=== PATIENT | male | born 1980 | race Caucasian/White ===

== ENCOUNTER 2019-01-14 14:48 | Emergency (ER) | payer OTHER, SELFPAY ==
[2019-01-14 14:49] VITALS: BP 164/103; PULSE 100; RESP 20; TEMP 36.6; O2SAT 97; BMI 29.4
--- NOTE | 2019-01-14 15:28 | RAD_ITS ---
STUDY: X-RAY - LEFT KNEE REASON FOR EXAM: Male, 38 years old. Left knee pain and swelling. TECHNIQUE: 4 view(s) of the knee. COMPARISON: None. FINDINGS: Normal visualized distal femur. Normal visualized proximal tibia and fibula. Normal proximal tibiofibular articulation. Normal medial femorotibial compartment. Mild degree of calcification of the medial meniscus. Normal lateral femorotibial compartment. Normal patellofemoral articulation. Large joint effusion. RAD/Knee 4 or More Views IMPRESSION: Large joint effusion. Mild chondrocalcinosis of the medial meniscus. Electronically Signed: Chris Christina, at 15:58 EDT , Service support ,
--- NOTE | 2019-01-14 15:29 | ED.DCSUM_ITS ---
- ER Visit Summary Date of Service: 01/14/19 Chief Complaint: Left knee pain History of Present Illness: The patient is a 38 M who presents with left knee pain that began last night. Patient states his knee gave out. Patient does not remember what he was doing when his knee gave out. Patient states that the swelling and pain became worse today. Patient states he is able to bear weight. Patient states the pain is worse with movement and better with rest. Patient describes the pain is sharp. Patient denies any paresthesias or weakness. Patient denies any other injuries. Physical Examination: Vital signs are stable. Patient is afebrile. Patient is in no acute distress. Musculoskeletal exam reveals tenderness over the left knee. There is a moderate effusion. There is no erythema or warmth. There is no pain with short arc range of motion. Patient was guarding on examination. There is no laxity with varus and valgus stress testing or Vandana's test. There is no calf tenderness. Sensation was intact to light touch in the lower extremities. Pedal pulses are equal bilaterally. Test Results: X-rays of the left knee were obtained. There is a large effusion. There is no acute fracture. These were interpreted by the radiologist and rev iewed by myself. Emergency Department Course and Treatment: Patient was given a knee immobilizer here. Patient was given crutches. Patient was instructed to ice and elevate the left knee. Patient was given a prescription for Naprosyn for pain. Patient was instructed to follow-up with his primary care physician in 5 to 7 days. Patient requested referral to a primary care physician who takes [email or web address] insurance. Patient was referred to Dr. Milo Luna who was next on the list for unassigned patients. According to the [employer] website, he does take [employer] insurance. Patient understood and was agreeable with the plan. All questions were answered. Disposition: Discharge home Impression: Left knee sprain This note was generated with [employer] dictation software. It may contain incorrect words, spelling, and punctuation that were not noted in review of the chart prior to signing ED Disposition - Plan for ED Patient: Disposition: Home or Assisted Living Diagnosis: Left knee sprain Instructions: Knee Sprain Prescriptions: Naproxen [Naprosyn] 500 mg PO BID PRN #20 tab Prescription Printed Referrals: NOT,DEFINED [NON-STAFF] - Milo Luna MD [STAFF PHYSICIAN] - 3-5 Days
--- NOTE | 2019-01-14 17:27 | ED.RN ---
DISCHARGE INSTRUCTIONS GIVEN TO AND REVIEWED WITH PATIENT, PATIENT DENIES QUESTIONS OR CONCERNS AND VOICES UNDERSTANDING OF DISCHARGE INSTRUCTIONS. PT AMBULATES OUT OF ROOM WITHOUT DIFFICULTY.
== END 2019-01-14 17:28 | disposition home or self-care (01) ==
PROVIDERS: Emergency Provider Emergency Medicine
DX: S83.92XA Sprain of unspecified site of left knee, initial encounter (principal); X58.XXXA Exposure to other specified factors, initial encounter; Y93.9 Activity, unspecified; Y92.89 Other specified places as the place of occurrence of the external cause; Y99.9 Unspecified external cause status; M25.462 Effusion, left knee; F17.210 Nicotine dependence, cigarettes, uncomplicated
CPT/HCPCS: 73564; 99284

== ENCOUNTER 2019-12-01 23:30 | Emergency (ER) | payer OTHER, SELFPAY ==
[2019-12-01 23:32] VITALS: BP 161/90; PULSE 99; RESP 16; TEMP 36.6; O2SAT 97; BMI 32.8
--- NOTE | 2019-12-02 00:04 | RAD_ITS ---
STUDY: X-RAY - LEFT WRIST REASON FOR EXAM: Male, 39 years old. laceration to distal medial lt wrist -- ? glass fb TECHNIQUE: 3 view(s) of the wrist were obtained. COMPARISON: None. FINDINGS: Normal visualized distal radius and ulna. Normal radiocarpal articulation. Normal distal radioulnar articulation. Normal carpal bones. Normal carpal articulations. Normal carpometacarpal articulation of the thumb. Normal second through fifth carpometacarpal articulations. Normal visualized metacarpal bones. There is focal soft tissue laceration adjacent to the distal ulna. There is a 5 mm embedded foreign body. RAD/Wrist min 3 Views IMPRESSION: There is NO fracture or dislocation. There is focal soft tissue laceration adjacent to the distal ulna. There is a 5 mm embedded foreign body. Electronically Signed: Otoniel Gould MD at 1:12 EDT , Service support ,
[2019-12-02 03:56] VITALS: BP 154/76; PULSE 86; RESP 18; O2SAT 97
--- NOTE | 2019-12-02 04:39 | ED.VIS.UPPEX ---
History of Present Illness Chief Complaint: Laceration Informant: Patient Mechanism/Context: Injury - JPTA Context: Sudden Onset Timing: Continuous Quality of Pain: - - sore Location: left wrist Current Severity: Mild Maximum Severity: Mild Worsened by: palpation Relieved by: leaving alone Associated Symptoms: Negative for: Parasthesia, Weakness, Loss of Funtion Narrative: [id number]-[id number] male accidentally put his left hand through a pane of glass on a door as he went to knock on it. He sustained a laceration. Last tetanus was a year ago. He denies any numbness or loss of function. Tetanus Immunization: <5 years Past Medical History - Allergies and Home Meds Allergies/Adverse Reactions: Allergies No Known Allergies Allergy (Verified 12/01/19 23:31) Smoking Status: Former smoker Review of Systems General: Denies: Chills, Fever, Sweats Musculoskeletal: Reports: Extremity Pain. Denies: Neck pain, Back pain Skin: Reports: Wounds. Denies: Abscess Neurological: Denies: Headache, Weakness, Numbness Physical Exam Vital Signs/Narrative: Vital Signs Pulse Resp BP Pulse Ox 12/02/19 03:56 86 18 154/76 H 97 General: Well nourished, Well developed, - - NAD Head: Normocephalic, Atraumatic ENT: No Trauma, Moist Mucous Membranes Extremeties: Full range of motion throughout all 4 extremities including the left wrist where there is a wound. Full range of motion throughout all of the fingers including flexion at FDS and FDP all digits. No bony tenderness throughout the wrist or hand. Skin: Normal color, No rash, Trauma - Stellate 6 cm laceration left wrist ulnar aspect with flaps. Clean appearing, no gross contamination visible. Minimal oozing of blood. The FCR is visible and appears to be uninjured within the laceration, no other structures other than subcutaneous fat visible. Neurological: Alert, Oriented x3, Cranial nerves II-XII grossly intact, Normal Strength, Normal Sensation, Normal Gait Psychological: Normal affect, Normal Mood Diagnostic/Tx/Re-eval Clinical Impression(s) from Imaging Studies Wrist X-Ray 12/02/19 00:04 IMPRESSION: There is NO fracture or dislocation. There is focal soft tissue laceration adjacent to the distal ulna. There is a 5 mm embedded foreign body. Electronically Signed: Otoniel Gould MD at 1:12 EDT , Service support , - Medical Decision Making X-ray showed a foreign body. It was measured at 5 mm, there are 2 very small little radiopaque flecks on it. After anesthetizing the patient with lidocaine with epinephrine to attempt a relatively bloodless field, I searched with increased overhead lighting and 2 different tools for this foreign body and wound unable to visualize it or feel it. I irrigated the wound and attempts to wash it out, the patient does not have foreign body sensation before or after anesthetizing it. We closed the wound after discussion with the patient, if these are very small little flecks of glass and they are retained, I think that the risk is low of permanent problems. There is definitely no 5 mm shard of glass in the wound. I probed all of the areas that I could. Every area had an endpoint. I placed him on prophylactic antibiotics, his tetanus is up-to-date, the wound was closed, and all questions answered at the bedside after dressing it with bacitracin. Procedures - Lacerations left wrist Length: 6 cm Depth: Sub Q Shape: Stellate Prep: Sterile Conditions, Chlorhexadine Laceration repair: Irrigated, Lidocaine with epi - 5cc, 1%, Local, Skin sutures Irrigated (ml): 100 Number of Sutures/[place]: 8 Suture Information: Ethilon, Simple, 4-0 ED Disposition - Plan for ED Patient: Disposition: Home or Assisted Living Diagnosis: Laceration of left wrist with foreign body Instructions: ED Foreign Body Soft Tissue, ED Laceration Hand Prescriptions: Cephalexin [Keflex] 500 mg PO TID #15 cap Transmission Status: Pending to [facility]30 Referrals: Ulices Duvall MD [STAFF PHYSICIAN] - 10 Day for suture removal (and for evaluation of possible retained foreign body management)
[2019-12-02] MEDS: Cephalexin 250 MG Capsule 500 MG PO (04:53)
[2019-12-02 04:56] VITALS: BP 128/78; PULSE 80; RESP 16; O2SAT 98
== END 2019-12-02 04:57 | disposition home or self-care (01) ==
PROVIDERS: Emergency Provider Emergency Medicine
DX: S61.512A Laceration without foreign body of left wrist, initial encounter (principal); W25.XXXA Contact with sharp glass, initial encounter; Y93.9 Activity, unspecified; Y92.89 Other specified places as the place of occurrence of the external cause; Y99.9 Unspecified external cause status; Z87.891 Personal history of nicotine dependence; Z23 Encounter for immunization
CPT/HCPCS: 12002; 73110; 99283

== ENCOUNTER 2023-04-07 23:10 | Emergency (ER) | payer SELFPAY ==
[2023-04-07 23:11] VITALS: BP 142/77; PULSE 61; RESP 18; TEMP 36.7; O2SAT 99; BMI 21.6
--- NOTE | 2023-04-07 23:20 | RAD_ITS ---
EXAM: XR RIGHT FINGERS, 2 OR MORE VIEWS CLINICAL INDICATION: Injury/Pain TECHNIQUE: Frontal, lateral and oblique views of the fingers of the right hand. COMPARISON: No relevant prior studies available. FINDINGS: BONES/JOINTS: Volar dislocated third proximal interphalangeal joint with associated fracture fragment adjacent to the dorsal base of the middle phalanx which is likely the donor site. No sclerotic or destructive changes observed. SOFT TISSUES: Soft tissue swelling of the third digit. No radiopaque foreign body. RAD/Finger(s) Min 2 Views IMPRESSION: Volar dislocated third proximal interphalangeal joint with associated fracture fragment adjacent to the dorsal base of the middle phalanx which is likely the donor site. Electronically Signed: Amrik Silveira DO at 23:37 EDT ,
--- NOTE | 2023-04-07 23:36 | EDS_ITS ---
HPI History of Present Illness Chief Complaint: Upper Extremity Injury PFSH PFS Medical History no medical history Home Medications NK 04/07/23 [History Last Taken Unknown] Allergy/AdvReac Type Severity Reaction Status Date / Time No Known Allergies Allergy Verified 04/07/23 23:14 Social History Smoking Status: Current every day smoker tobacco type: cigarettes EXAM Physical Exam Const Vital Signs: 04/07/23 23:11 Temperature 98.0 F Temperature Source Temporal Pulse Rate 61 Respiratory Rate 18 Blood Pressure 142/77 H Blood Pressure Mean 98 Pulse Ox 99 Oxygen Delivery Method Room Air MDM MDM Radiography Chest X-Ray - ED: Read by ED Physician (X-ray of the right long finger was obtained. There is a volar dislocation at the PIP joint. There is a small avulsion fracture noted. Suspect this is off the proximal portion of the middle phalanx.) Procedures Other Procedures Procedure(s): The right ring finger was anesthetized by digital block. Reduction of the dislocation was undertaken. Of note there is a small fluid collection on the volar surface of the PIP joint. Since the patient is now anesthetized we will evaluate more closely determine if this is open or not. Discharge Plan Triage Chief Complaint: Upper Extremity Injury ED Provider: Tex Sheriff Dx/Rx/DC Orders Prescriptions: No Action NK Primary Care Provider: Care Physician,No Primary Referrals: Care Physician,No Primary [Primary Care Provider] -
--- NOTE | 2023-04-07 23:36 | EX.ED.UPPERE ---
HPI History of Present Illness Chief Complaint: Upper Extremity Injury Detail of Chief Complaint: Fell injuring his right long finger. Informant: patient and spouse/S.O. Occured/Mechanism Mechanism/Context: Yes blunt trauma and Yes same level fall Onset/Context/Timing Onset: Hours Context: Sudden Onset Timing: Continuous Quality of Pain: Dull and Aching Location: Right long finger with hematoma on volar surface. Current Severity: Mild Maximum Severity: Moderate Worsened by: Movement Relieved by: Nothing Associated Symptoms Associated Symptoms: Positive for Parasthesia; Negative for Weakness or Loss of Funtion Narrative Narrative: Is a 42-year-old usyoj-ohce-enhurcpq male presents after fall. He injured his right long finger. He has an injury at the PIP joint. He complains of numbness distal to the injury. He denies prior injury. He has no allergies. Is on no medication. He does admit to smoking and drinking. He did drink this evening at [employer]. Tetanus Immunization: Unknown Prior similar symptoms: No Recent Illness/Hospitalization: No PFSH PFSH Medical History no medical history no medical history Home Medications NK 04/07/23 [History Last Taken Unknown] Allergy/AdvReac Type Severity Reaction Status Date / Time No Known Allergies Allergy Verified 04/07/23 23:14 Surgical History no surgical history no surgical history Social History (Updated 04/07/23 @ 23:[address] 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) household members: spouse and children Smoking Status: Current every day smoker tobacco type: cigarettes alcohol intake: current ROS ROS ED Musculoskeletal Musculoskeletal: Reports other Details: The right long finger ; Denies back pain, myalgias or neck pain Integumentary Denies abscess, Abrasions or rash Neurologic Neurologic: Reports paresthesias; Denies headache(s) or weakness Hematologic/Lymphatic Hematologic/Lymphatic: Denies easy bleeding or easy bruising EXAM Physical Exam Const Vital Signs: 04/07/23 23:11 Temperature 98.0 F Temperature Source Temporal Pulse Rate 61 Respiratory Rate 18 Blood Pressure 142/77 H Blood Pressure Mean 98 Pulse Ox 99 Oxygen Delivery Method Room Air Positive well nourished and well developed General Appearance ED: well developed and NAD; Negative for cyanotic or diaphoretic HEENT Reports moist mucous membranes normocephalic and atraumatic Eyes PERRL and EOMs intact bilaterally Eyes Narrative: No hemorrhage noted. There is no septal deviation hematoma. Neck full ROM and supple Resp normal respiratory effort and clear to auscultation bilaterally Cardio regular rate, regular rhythm, S1 normal heart sound, S2 normal heart sound and no murmurs Extremity Extremity Narrative: 3 at the PIP joint of the right long finger. Two-point discrimination is normal. There is no subungual hematoma noted. The extensor inside, extensor commonness and extensor minimize tendon are intact. The flexor digitorum superficialis and flexor digitorum profundus are intact for the index, ring and little finger. Patient is able to flex at the DIP joint long finger unable at the PIP joint. There is also a small hematoma noted volar surface of the PIP joint. There is no break in the skin. Neuro oriented x3, CN's II-XII intact bilaterally, no focal motor deficits and no sensory deficits noted Sensorium / Orientation: alert Psych mental status grossly normal Skin Skin Narrative: Under the EXTR medial portion of the chart MDM MDM MDM Narrative Medical decision making narrative: Obtained to evaluate for dislocation versus fracture dislocation versus fracture. Radiography Chest X-Ray - ED: Read by ED Physician (X-ray of the right long finger was obtained. There is a volar dislocation at the PIP joint. There is a small avulsion fracture noted. Suspect this is off the proximal portion of the middle phalanx.) and - (Of the finger were obtained postreduction. There is a small avulsion fracture noted on the volar surface. This raises concern for volar plate injury. We will have patient placed in an aluminum splint position of function and he was referred to Dr. Ang talbot.) Procedures Other Procedures Procedure(s): The right ring finger was anesthetized by digital block. Reduction of the dislocation was undertaken. Of note there is a small fluid collection on the volar surface of the PIP joint. Since the patient is now anesthetized we will evaluate more closely determine if this is open or not. The joint was reduced easily with traction. Postreduction film was ordered. Discharge Plan Triage Chief Complaint: Upper Extremity Injury ED Provider: Tex Sheriff Dx/Rx/DC Orders Clinical Impression: Closed fracture dislocation of proximal interphalangeal (PIP) joint of finger Instructions: ED Finger Dislocation, ED Fracture, Finger, Closed Prescriptions: No Action NK Primary Care Provider: Care Physician,No Primary Referrals: Johnny Plummer DO [Med Staff - Active Staff] - 3-5 Days Care Physician,No Primary [Primary Care Provider] - Activity Restrictions/Additional Instructions: 1. Apply ice to your right long finger 6-10 times a day 2. Wear splint until seen and cleared by Dr. Johnny Plummer 3. Noncompliance may result in permanent deformity of your finger and disability Disposition Disposition: Home, Self Care
--- NOTE | 2023-04-07 23:39 | RAD_ITS ---
EXAM: XR RIGHT FINGERS, 2 OR MORE VIEWS CLINICAL INDICATION: Injury/Pain -- Reduction of PIP dislocation TECHNIQUE: Frontal, lateral and oblique views of the right third finger. COMPARISON: Finger exam from same date FINDINGS: BONES/JOINTS: Reduction of the previous PIP joint dislocation. Small fracture fragment from the volar base of the middle phalanx is again noted. No sclerotic or destructive changes observed. SOFT TISSUES: Soft tissue swelling of the third finger. No radiopaque foreign body. RAD/Finger(s) Min 2 Views IMPRESSION: Reduction of the previous PIP joint dislocation. Small fracture fragment from the volar base of the middle phalanx is again noted. Electronically Signed: Segundo Rush MD at 0:48 EDT ,
== END 2023-04-08 00:46 | disposition home or self-care (01) ==
PROVIDERS: Emergency Provider Emergency Medicine; Visit Provider Emergency Medicine
DX: S62.614A Displaced fracture of proximal phalanx of right ring finger, initial encounter for closed fracture (principal); F17.210 Nicotine dependence, cigarettes, uncomplicated; W18.30XA Fall on same level, unspecified, initial encounter
CPT/HCPCS: 26770; 73140; 99283

== ENCOUNTER 2024-12-10 21:49 | Emergency (ER) | payer SELFPAY ==
[2024-12-10 21:50] VITALS: BP 135/88; PULSE 87; RESP 17; TEMP 36.6; O2SAT 93; BMI 27.1
--- NOTE | 2024-12-10 22:35 | RAD_ITS ---
PROCEDURE: KNEE 3 VIEWS 12/10/2024 REASON FOR EXAM: PAIN /JOINT EFFUSION TECHNIQUE: 3 view(s) of the right knee COMPARISON: None FINDINGS: No acute fracture or traumatic malalignment. Joint spaces are predominantly maintained. Moderate knee joint effusion. There is a punctate calcification in the thigh soft tissues, which may be vascular. Soft tissues are otherwise unremarkable. Tiny bone islands in the femoral condyles. RAD/Knee 3 Views IMPRESSION: Moderate knee joint effusion, without an acute osseous abnormality. Reading Location: [facility]
--- OUTSIDE RECORDS SUMMARY | 2024-12-10 23:07 | XMS RPT_ITS | CCD ---
Author Organization [facility] Care Team Providers Care Director Investor Relations Name Role Phone Tex Sheriff Attending [facility] Care Physician, No Primary Primary Care Unava ilable Medications Current Medications Medication Drug Class(es) Dates Sig (Normalized) Sig (Original) [place] (Nk) (1 source) Start: 04-07-2023 [place] (Nk) A ctive April 07, 2023 12:00am Completed/Discontinued Medications Medication Drug Class(es) Dates Sig (Normalized) Sig (Original) cephalexin 500 mg oral capsule (1 source) Cephalosporin Antibacterial Start: 12-02-2019 End: 04-07-2023 take 500 mg by mouth three times daily Cephalexin Discontinued 500 MG PO THREE TIMES A DAY December 02, 2019 12:00am April 07, 2023 11:14pm Problems Problem Classification Problem Date Documented Date Episodic/Chronic Fracture of upper limb (1 source) Closed fracture dislocation of proximal interphalangeal joint of digit of hand; Translations: [Fracture of unspecified phalanx of unspecified finger, initial encounter for closed fracture] 04-08-2023 Episodic Open wounds of extremities (1 source) Laceration of wrist with foreign body; Translations: [Laceration with foreign body of left wrist, initial encounter] 12-03-2019 Episodic Other injuries and conditions due to external causes (1 source) Unspecified injury of right wrist, hand and finger(s), initial encounter; Translations: [Unspecified injury of right wrist, hand and finger(s), initial encounter] Onset: 04-13-2023 Episodic Sprains and strains (1 source) Sprain of knee; Translations: [Sprain of unspecified site of left knee, initial encounter] 01-15-2019 Episodic Results Test Name Value Interpretation Reference Range Facil ity Emergency Department Summary on 04-08-2023 Emergency Department Summary [facility] Medical Records Department [address] [place] [address] Emergency Department Summary 04/07/23 MR#: [id number] Acct: [id number] Name: SEUN BARNES Jr. Rep #: [id number] : 1980 42 From: 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 PCP: Care Physician,No Primary Status:REG ER Location: ED HPI History of Present Illness Chief Complaint: Upper Extremity Injury Detail of Chief Complaint: Fell injuring his right long finger. Informant: patient and spouse/S.O. Occured/Mechanism Mechanism/Context: Yes blunt trauma and Yes same level fall Onset/Context/Timing Onset: Hours Context: Sudden Onset Timing: Continuous Quality of Pain: Dull and Aching Location: Right long finger with hematoma on volar surface. Current Severity: Mild Maximum Severity: Moderate Worsened by: Movement Relieved by: Nothing Associated Symptoms Associated Symptoms: Positive for Parasthesia; Negative for Weakness or Loss of Funtion Narrative Narrative: Is a 42-year-old adheo-obme-guorgrjd male presents after fall. He injured his right long finger. He has an injury at the PIP joint. He complains of numbness distal to the injury. He denies prior injury. He has no allergies. Is on no medication. He does admit to smoking and drinking. He did drink this evening at [facility]. Tetanus Immunization: Unknown Prior similar symptoms: No Recent Illness/Hospitalizatio n: No PFSH PFSH Medical History no medical history no medical history Home Medications NK 04/07/23 [History Last Taken Unknown] Allergy/AdvReac Type Severity Reaction Status Date / Time No Known Allergies Allergy Verified 04/07/23 23:14 Surgical History no surgical history no surgical history Social History (Updated 04/07/23 @ 23:[address] 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) household members: spouse and children Smoking Status: Current every day smoker tobacco type: cigarettes alcohol intake: current ROS ROS ED Musculoskeletal Musculoskeletal: Reports other Details: The right long finger ; Denies back pain, myalgias or neck pain Integumentary Denies abscess, Abrasions or rash Neurologic Neurologic: Reports paresthesias; Denies headache(s) or weakness Hematologic/Lymphatic Hematologic/Lymphatic: Denies easy bleeding or easy bruising EXAM Physical Exam Const Vital Signs: 04/07/23 23:11 Temperature 98.0 F Temperature Source Temporal Pulse Rate 61 Respiratory Rate 18 Blood Pressure 142/77 H Blood Pressure Mean 98 Pulse Ox 99 Oxygen Delivery Method Room Air Positive well nourished and well developed General Appearance ED: well developed and NAD; Negative for cyanotic or diaphoretic HEENT Reports moist mucous membranes normocephalic and atraumatic Eyes PERRL and EOMs intact bilaterally Eyes Narrative: No hemorrhage noted. There is no septal deviation hematoma. Neck full ROM and supple Resp normal respiratory effort and clear to auscultation bilaterally Cardio regular rate, regular rhythm, S1 normal heart sound, S2 normal heart sound and no murmurs Extremity Extremity Narrative: 3 at the PIP joint of the right long finger. Two-point discrimination is normal. There is no subungual hematoma noted. The extensor inside, extensor commonness and extensor minimize tendon are intact. The flexor digitorum superficialis and flexor digitorum profundus are intact for the index, ring and little finger. Patient is able to flex at the DIP joint long finger unable at the PIP joint. There is also a small hematoma noted volar surface of the PIP joint. There is no break in the skin. Neuro oriented x3, CN's II-XII intact bilaterally, no focal motor deficits and no sensory deficits noted Sensorium / Orientation: alert Psych mental status grossly normal Skin Skin Narrative: Under the EXTR medial portion of the chart MDM MDM MDM Narrative Medical decision making narrative: Obtained to evaluate for dislocation versus fracture dislocation versus fracture. Radiography Chest X-Ray - ED: Read by ED Physician (X-ray of the right long finger was obtained. There is a volar dislocation at the PIP joint. There is a small avulsion fracture noted. Suspect this is off the proximal portion of the middle phalanx.) and - (Of the finger were obtained postreduction. There is a small avulsion fracture noted on the volar surface. This raises concern for volar plate injury. We will have patient placed in an aluminum splint position of function and he was referred to Dr. Ang talbot.) Procedures Other Procedures Procedure(s): The right ring finger was anesthetized by digital block. Reduction of the dislocation was undertaken. Of note there is a small fluid collection on the volar surface of the PIP joint. Since the patient is now anesthetized we will evaluate more closely determine if this is open or not (more content not included)... Normal [facility] Finger(s) Min 2 Viewson 10-0 Finger(s) Min 2 Views [facility] Imaging Services [address] [place] [address] Finger(s) Min 2 Views MR#: [id number] Acct: [id number] Name: SEUN BARNES Jr. Rep #: [id number] : 1980 M 42 From: Segundo Rush MD PCP: Care Physician,No Primary Status: DEP ER Study: Finger(s) Min 2 Views Date of Exam: 04/07/23 Exam# [id number] Ordering Dr: 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 [id number] EXAM: XR RIGHT FINGERS, 2 OR MORE VIEWS CLINICAL INDICATION: Injury/Pain -- Reduction of PIP dislocation TECHNIQUE: Frontal, lateral and oblique views of the right third finger. COMPARISON: Finger exam from same date FINDINGS: BONES/JOINTS: Reduction of the previous PIP joint dislocation. Small fracture fragment from the volar base of the middle phalanx is again noted. No sclerotic or destructive changes observed. SOFT TISSUES: Soft tissue swelling of the third finger. No radiopaque foreign body. RAD/Finger(s) Min 2 Views IMPRESSION: Reduction of the previous PIP joint dislocation. Small fracture fragment from the volar base of the middle phalanx is again noted. Electronically Signed: Segundo Rush MD at 0:48 EDT , CC: Dr. 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; No Primary Care Physician Neurourologist: Signed Normal [facility] Finger(s) Min 2 Views [facility] Imaging Services [address] [place] [address] Finger(s) Min 2 Views MR#: [id number] Acct: [id number] Name: SEUN BARNES Rep #: [id number] : 1980 M 42 From: Amrik chávez DO PCP: Care Physician,No Primary Status: REG ER Study: Finger(s) Min 2 Views Date of Exam: 04/07/23 Exam# [id number] Ordering Dr: 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 [id number] EXAM: XR RIGHT FINGERS, 2 OR MORE VIEWS CLINICAL INDICATION: Injury/Pain TECHNIQUE: Frontal, lateral and oblique views of the fingers of the right hand. COMPARISON: No relevant prior studies available. FINDINGS: BONES/JOINTS: Volar dislocated third proximal interphalangeal joint with associated fracture fragment adjacent to the dorsal base of the middle phalanx which is likely the donor site. No sclerotic or destructive changes observed. SOFT TISSUES: Soft tissue swelling of the third digit. No radiopaque foreign body. RAD/Finger(s) Min 2 Views IMPRESSION: Volar dislocated third proximal interphalangeal joint with associated fracture fragment adjacent to the dorsal base of the middle phalanx which is likely the donor site. Electronically Signed: Amrik Silveira DO at 23:37 EDT , CC: Dr. 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; No Primary Care Physician [facility]urourologist: [facility] Office Visit (UCWSTR ) SEUN BARNES JR ([id number]) 1980 M Date Time Provider Department 08/18/20 7:30 PM ROSE SPENCER [facility] During your visit today, we recorded the following information about you: Temperature Pulse Respiration Blood pressure 98.6 degrees 86/minute 16/minute 134/84 Weight 116.1 kg Rose Spencer MD 08/18/2020 8:58 PM Signed Patient presents with: Eye Problem: right eye possible plaster in it x 1 hour HPI: Patient was working with a light tonight. He was wearing safety glasses but plaster fell off his eyebrow into his right eye. He flushed the right eye with a lot of warm water. He has had no vision changes. There is no eye discomfort however the lower portion of his right eye is filled with fluid. He felt the plaster pull in the lower part of the eye and did rub the eye. MEDICATIONS: No prescriptions on file. ALLERGIES: ALLERGIES No Known Allergies VITALS: BP 134/84 Pulse 86 Temp 37 ?C (98.6 ?F) (Tympanic) Resp 16 Wt 116.1 kg (256 lb) SpO2 96% PE: Pleasant, in no acute distress. EYES: EOMI, PERRL Right: There is clear to slightly xiomara bullous fluid collection below the sclera in the lower 1/2 of the eye. No foreign body identified. The anterior chamber is clear. No corneal or scleral abrasions or fluid leaks identified with fluorescein exam. He has 2mm white sessile lesion on the inner surface of the medial upper eyelid (patient reports it is a chronic known lesion). Normal acuity to fine print. ASSESSMENT/PLAN: 1. Chemosis of conjunctiva, right - ICD9: 372.73, ICD10: H11.421 Vision is intact, no retained foreign bodies identified, no corneal defects, low suspicion for globe penetration. Repeat flushing to ensure neutral pH in the eye. He declines to schedule f/u tomorrow, but agrees to be seen by ophthalmology if there is not significant improvement. Rose Spencer MD Referring Provider: SELF [200] Allergies As of Date: 08/18/2020 (No Known Allergies) Date Reviewed: 08/18/2020 Reviewed by: Gwen Ignacio Ma - Fully Assessed Reason for Visit: Eye Problem [43] Cmt: right eye possible plaster in it x 1 hour Primary Visit Diagnosis:Chemosis of conjunctiva, right [H11.421] Problem List As Of Date: 08/18/2020 (None) Medications Discontinued During This Encounter Prescriptions - mupirocin (BACTROBAN) 2 % ointment (Discontinued) Reported on 08/18/2020 Encounter Status:Closed by ROSE SPENCER MD on 08/18/20 Normal [facility] Vital Signs Date Time Vital Sign Value Performing Clinician García chavez 04-07-2023 23:11-0400 Body height 182.88 cm [facility] 04-07-2023 23:11-0400 Body mass index (BMI) [Ratio] 21.6 kg/m2 [facility] 04-07-2023 23:11-0400 Body temperature 98 [degF] [facility] 04-07-2023 23:11-0400 Body weight 72.4 kg [facility] 04-07-2023 23:11-0400 Diastolic blood pressure 77 mm[Hg] [facility] 04-07-2023 23:11-0400 Heart rate 61 /min [facility] 04-07-2023 23:11-0400 Respiratory rate 18 /min [facility] 04-07-2023 23:11-0400 SaO2% (BldA) [Mass fraction] 99 % [facility] 04-07-2023 23:11-0400 Systolic blood pressure 142 mm[Hg] [facility] Encounters Encounter Date Encounter Type Care Provider Facility Start: 04-08-2023 End: 04-08-2023 Emergency department patient visit [facility] Facility:[facility] Start: 04-07-2023 End: 04-08-2023 Emergency department patient visit [facility]-Emergency Department Work Phone: Procedures Date Procedure Procedure Detail Performing Clinician Start: 04-07-2023 End: 04-07-2023 Diagnostic radiography of finger Plan of Treatment Date Care Activity Detail Author Patient Education ED Finger Disl ocation ED Fracture, Finger, Closed [facility] Work Phone: Patient referral [facility] Work Phone: Payers Date Payer Category Payer Self-pay [id number] 2023 Unknown [id number] Unknown [employer] [id number] Unknown [facility] [id number] Unknown [id number] Social History Date Type Detail Facility Start: 04-07-2023 Tobacco smoking stat [facility] Unknown if ever smoked [facility] Start: 1980 Sex Assigned At Male [facility] Discharge summary 04-07-2023 Note Date & Type Note Facility 04-07-2023 Discharge summary Note Date/Time April 07, 2023 11:37pm [facility] Medical Records Department [address] [place] [address] Emergency Department Summary 04/07/23 MR#: [id number] Acct: [id number] Name: SEUN BARNES Rep #:[id number] : 1980 42 From: 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 PCP: Care Physician,No Primary Status :REG ER Location: ED HPI History of Present Illness Chief Complaint: Upper Extremity Injury Detail of Chief Complaint: Fell injuring his right long finger. Informant: patient and spouse/S.O. Occured/Mechanism Mechanism/Context: Yes blunt trauma and Yes same level fall Onset/Context/Timing Onset: Hours Context: Sudden Onset Timing: Continuous Quality of Pain: Dull and Aching Location: Right long finger with hematoma on volar surface. Current Severity: Mild Maximum Severity: Moderate Worsened by: Movement Relieved by: Nothing Associated Symptoms Associated Symptoms: Positive for Parasthesia; Negative for Weakness or Loss of Funtion Narrative Narrative: Is a 42-year-old keddn-xsaa-plkgciqe male presents after fall. He injured his right long finger. He has an injury at the PIP joint. He complains of numbnessdistal to the injury. He denies prior injury. He has no allergies. Is on no medication. He does admit to smoking and drinking. He did drink this evening at [place] [employer]. Tetanus Immunization: Unknown Prior similar symptoms: No Recent Illness/Hospitalization: No PFSH PFSH Medical History no medical history no medical history Home Medications NK 04/07/23 [History Last Taken Unknown] Allergy/AdvReac Type Severity Reaction Status Date / Time No Known Allergies Allergy Verified 04/07/23 23:14 Surgical History no surgical history no surgical history Social History (Updated 04/07/23 @ 23:[address] 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) household members: spouse and children Smoking Status: Current every day smoker tobacco type: cigarettes alcohol intake: current ROS ROS ED Musculoskeletal Musculoskeletal: Reports other Details: The right long finger ; Denies back pain, myalgias or neck pain Integumentary Denies abscess, Abrasions or rash Neurologic Neurologic: Reports paresthesias; Denies headache(s) or weakness Hematologic/Lymphatic Hematologic/Lymphatic: Denies easy bleeding or easy bruising EXAM Physical Exam Const Vital Signs: 04/07/23 23:11 Temperature 98.0 F Temperature Source Temporal Pulse Rate 61 Respiratory Rate 18 Blood Pressure 142/77 H Blood Pressure Mean 98 Pulse Ox 99 Oxygen Delivery Method Room Air Positive well nourished and well developed General Appearance ED: well developed and NAD; Negative for cyanotic or diaphoretic HEENT Reports moist mucous membranes normocephalic and atraumatic Eyes PERRL and EOMs intact bilaterally Eyes Narrative: No hemorrhage noted. There is no septal deviation hematoma. Neck full ROM and supple Resp normal respiratory effort and clear to auscultation bilaterally Cardio regular rate, regular rhythm, S1 normal heart sound, S2 normal heart sound and no murmurs Extremity Extremity Narrative: 3 at the PIP joint of the right long finger. Two-point discrimination is normal. There is no subungual hematoma noted. The extensor inside, extensor commonness and extensor minimize tendon are intact. The flexor digitorum superficialis and flexor digitorum profundus are intact for the index, ring and little finger. Patient is able to flex at the DIP joint long finger unable at the PIP joint. There is also a small hematoma noted volar surface of the PIP joint. There is no break in the skin. Neuro oriented x3, CN's II-XII intact bilaterally, no focal motor deficits and no sensory deficits noted Sensorium / Orientation: alert Psych mental status grossly normal Skin Skin Narrative: Under the EXTR medial portion of the chart MDM MDM MDM Narrative Medical decision making narrative: Obtained to evaluate for dislocation versus fracture dislocation versus fracture. Radiography Chest X-Ray - ED: Read by ED Physician (X-ray of the right long finger was obtained. There is a volar dislocation at the PIP joint. There is a small avulsion fracture noted. Suspect this is off the proximal portion of the middlephalanx.) and - (Of the finger were obtained postreduction. There is a small avulsion fracture noted on the volar surface. This raises concern for volar plate injury. We will have patient placed in an aluminum splint position of function and he was referred to Dr. Ang talbot.) Procedures Other Procedures Procedure(s): The right ring finger was anesthetized by digital block. Reduction of the dislocation was undertaken. Of note there is a small fluid collection on the volar surface of the PIP joint. Since the patient is now anesthetized we will evaluate more closely determine if this is open or not. The joint was reduced easily with traction. Postreduction film was ordered. Discharge Plan Triage Chief Complaint: Upper Extremity Injury ED Provider: Tex Sheriff Dx/Rx/DC Orders Clinical Impression: Closed fracture dislocation of proximal interphalangeal (PIP) joint of finger Instructions: ED Finger Dislocation, ED Fracture, Finger, Closed Prescriptions: No Action NK Primary Care Provider: Care Physician,No Primary Referrals: Johnny Plummer, [Med Staff - Active Staff] - 3-5 Days Care Physician,No Primary [Primary Care Provider] - Activity Restrictions/Additional Instructions: 1. Apply ice to your right long finger 6-10 times a day 2. Wear splint until seen and cleared by Dr. Johnny Plummer 3. Noncompliance may result in permanent deformity of your finger and disability Disposition Disposition: Home, Self Care What to do if you have Problems For any increased pain, shortness of breath, bleeding, nausea or vomiting, chestpain, or any unexpected problems, contact your Primary Care Provider. Call [facility] ([phone]) or report to the closest Emergency Room. Call 911 if necessary. 04/08/23 0024 <Electronically signed by 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> Cosigner Signature (if applicable): CC: No Primary Care Physician ~ Signed [facility] Work Phone: Progress note 08-18-2020 Note Date & Type Note Facility 08-18-2020 Note HNO ID: [id number] Author: Rose Spencer Service: ? Author Type: Physician Type: Progress Notes Filed: 08/18/2020 8:58 PM Note Text: Patient presents with: Eye Problem: right eye possible plaster in it x 1 hour HPI: Patient was working with a light tonight. He was wearing safety glasses but plaster fell off his eyebrow into his right eye. He flushed the right eye with a lot of warm water. He has had no vision changes. There is no eye discomfort however the lower portion of his right eye is filled with fluid. He felt the plaster pull in the lower part of the eye and did rub the eye. MEDICATIONS: No prescriptions on file. ALLERGIES: ALLERGIES No Known Allergies VITALS: BP 134/84 Pulse 86 Temp 37 ?C (98.6 ?F) (Tympanic) Resp 16 Wt 116.1 kg (256 lb) SpO2 96% PE: Pleasant, in no acute distress. EYES: EOMI, PERRL Right: There is clear to slightly xiomara bullous fluid collection below the sclera in the lower 1/2 of the eye. No foreign body identified. The anterior chamber is clear. No corneal or scleral abrasions or fluid leaks identified with fluorescein exam. He has 2mm white sessile lesion on the inner surface of the medial upper eyelid (patient reports it is a chronic known lesion). Normal acuity to fine print. ASSESSMENT/PLAN: 1. Chemosis of conjunctiva, right - ICD9: 372.73, ICD10: H11.421 Vision is intact, no retained foreign bodies identified, no corneal defects, low suspicion for globe penetration. Repeat flushing to ensure neutral pH in the eye. He declines to schedule f/u tomorrow, but agrees to be seen by ophthalmology if there is not significant improvement. Rose Spencer MD [facility] Evaluation note Note Date & Type Note Facility Evaluation note No assessment information availa ble [facility] Work Phone: Hospital Discharge instructions Note Date & Type Note Facility Hospital Discharge instructions Additional Instructions 1. Apply ice to your right long finger 6-10 times a day 2. Wear splint until seen and cleared by Dr. Johnny Plummer 3. Noncompliance may result in permanent deformity of your finger and disability [facility] Work Phone: Summary Purpose Family History No Family History Records FoundNo Family History Records Found Advance Directives No Advanced Directives Records Found Advance Directive Response Recorded Date/ Time Living Will No April 07, 2023 11:13pm Power of Estate Planning Attorney No March 11:13pm Chief Complaint and Reason for Visit Chief Complaint FINGER Additional Source Comments (unrecognized sect ion and content) No Status Records FoundNo Status Records Found INFORMATION SOURCE (unrecogn ized section and content) DATE CREATED AUTHOR 08/16/2021 [facility] DATE CREATED AUTHOR AUTHOR'S ORGANIZ ATION 04/13/2023 [facility] Care Teams (unrecognized sec tion and content) Team Status: Active Member Role Status Dates No Primary Care Physician Family Provider Active No Primary Care Physician Primary Care Provider Active Team Status: Inactive Member Role Status Dates No Primary Care Physician Primary Care Provider Active Dr. 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 Emergency Provider Active Goals (unrecognized section and content) Goals may be documented in a n alternate section FOR RECORDS PERTAINING TO PATIENTS WHO ARE OR HAVE BEEN ENROLLED IN A CHEMICAL DEPENDENCY/SUBSTANCEABUSE PROGRAM, SOME INFORMATION MAY BE OMITTED. This clinical summary was aggregated from multiple sources. Caution should be exercised in using it in the provision of clinical care. This summary normalizes information from multiple sources, and as a consequence, information in this document may materially change the coding, format and clinical context of patient data. In addition, data may be omitted in some cases. CLINICAL DECISIONS SHOULD BE BASED ON THE PRIMARY CLINICAL RECORDS. [email or web address] provides no warranty or guarantee of the accuracy or completeness of information in this document.
[2024-12-10] MEDS: Lidocaine 2% /Epi 1:100 (20ml) 20 ML VIAL INFILT (23:54)
--- NOTE | 2024-12-11 | ED.RN ---
pt seen leaving department. tried to stop pt to ask if pt was leaving, son answered and stated that they were leaving. Dr. Menchaca made aware
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
== END 2024-12-11 00:04 | disposition left against medical advice (07) ==
PROVIDERS: Emergency Provider Emergency Medicine; Visit Provider Emergency Medicine
DX: M25.461 Effusion, right knee (principal); F17.210 Nicotine dependence, cigarettes, uncomplicated; R26.2 Difficulty in walking, not elsewhere classified
CPT/HCPCS: 73562; 99282